=== PATIENT | male | born 1955 | race Caucasian/White ===

== ENCOUNTER 2019-02-27 12:33 | Inpatient (IN) | payer MEDICARE ==
[2019-02-27 13:11] LABS: #Eosinphils 0.3 thou/uL (0.0-0.7); #Lymphocytes 1.2 thou/uL (1.20-3.40); #Monocytes 1.3 thou/uL (0.11-0.59); #Neutrophils 11.1 thou/uL (1.40-6.50); %Basophils 0.2 % (0.0-1.0); %Eosinophils 2.2 % (0.0-10.0); %Lymphocytes 8.5 % (21.0-51.0); %Neutrophils 80.2 % (42.0-75.0); Hemoglobin 12.6 g/dL (14.0-18.0); Mean Corpuscular HGB CONC 32.3 g/dL (32.0-36.0); Mean Corpuscular Volume 96.1 fL (78.0-98.0); Mean Platelet Volume 7.8 fL (7.4-10.4); Platelet Count 261 thou/uL (130-400); Red Blood Cell (RBC) Count 4.05 mill/uL (4.70-6.10); White Blood Cell (WBC) Count 13.9 thou/uL (4.8-10.8)
[2019-02-27 13:32] LABS: ALT (SGPT) 20 U/L (8-55); AST (SGOT) 14 U/L (5-34); Albumin 3.7 g/dL (3.4-4.8); Alkaline Phosphatase 93 U/L (40-150); Anion Gap 11 mmol/L (10-20); BUN (Urea Nitrogen) 18 mg/dL (8.4-25.7); Bilirubin, Total 0.7 mg/dL (0.2-1.2); Calc. Creatinine Clearance 0 mL/min (70-130); Calcium 9.9 mg/dL (7.8-10.44); Carbon Dioxide 31 mmol/L (23-31); Chloride 95 mmol/L (98-107); Estimated GFR-MDRD 72; Globulin 3.5 g/dL (2.4-3.5); Glucose 185 mg/dL (80-115); Potassium 4.6 mmol/L (3.5-5.1); Protein, Total 7.2 g/dL (5.8-8.1); Sodium 132 mmol/L (136-145)
--- NOTE | 2019-02-27 15:39 | ULT ---
LEFT LOWER EXTREMITY VENOUS ULTRASOUND: 02/27/19 COMPARISON: None. HISTORY: Left leg edema. TECHNIQUE: Multiplanar ulloa scale and color Doppler images obtained in a left lower extremity venous ultrasound. Spectral analysis of the Doppler waveforms were performed. FINDINGS: The left common femoral vein, profunda femoral vein, superficial femoral vein, and popliteal vein are normal in appearance without visible thrombus. These vessels demonstrate normal compression, flow an d augmentation. The visualized portions of the posterior tibial vein and greater saphenous vein are p atent. IMPRESSION: No evidence of DVT. POS: TPC
[2019-02-27] MEDS ORDERED: Morphine 4 MG/ML VIAL ONE (16:42)
[2019-02-27] MEDS ORDERED: Piperacillin/Tazobactam 4.5 GM VIAL ONE (17:25)
[2019-02-27] MEDS ORDERED: Sodium Chloride 0.9% 1,000 ML IV SCH (19:13)
[2019-02-27] MEDS ORDERED: Ondansetron PF 4 MG/2 ML Vial IVP PRN (19:13)
[2019-02-27] MEDS ORDERED: Ondansetron ODT 4 MG TAB SL PRN (19:13)
[2019-02-27 22:33] VITALS: BMI 38.4
[2019-02-28] MEDS: Piperacillin/Tazobactam 4.5 GM in Sodium Chloride 0.9% 100 ML IVPB SCH ×4 (00:14→19:10)
[2019-02-28] MEDS: Acetaminophen 325 MG TAB PO PRN ×3 (00:15→22:58)
[2019-02-28] MEDS: Vancomycin HCl 1.75 GM in Sodium Chloride 0.9% 500 ML IVPB SCH ×2 (01:54→13:53)
[2019-02-28] MEDS ORDERED: Vancomycin HCl 1 GM in Premix Bag 1 BAG IVPB SCH (03:00)
--- NOTE | 2019-02-28 04:10 | HP ---
PRIMARY CARE PHYSICIAN: Dr. Christian. CHIEF COMPLAINT: Lower extremity cellulitis and pain. HISTORY OF PRESENT ILLNESS: Mr. Strickland is a 63-year-old man with a past medical history of hypertension, hyperlipidemia, history of ischemic cerebrovascular accident with some left-sided deficits, who had presented to [facility] earlier today due to worsening left lower extremity redness, swelling, and pain. The patient states that the symptoms have been going on for the last 1 to 2 months, but has gradually worsened over the last 1 to 2 weeks. He states due to his previous stroke in 2010, he has some left-sided deficits, which has caused him some trouble with ambulating and getting around his house. He states that he lives at home with his sister. He had denied any fever, chills, any headache, blurred vision, dizziness, any chest pain, palpitations, shortness of breath, abdominal pain, nausea, or vomiting. His initial workup included a lower extremity ultrasound which was negative for DVT. His labs indicated an elevated white count of 13.9. He was started on IV vancomycin and Zosyn per ED staff. Blood cultures were sent and are pending at this time. REVIEW OF SYSTEMS: All other systems reviewed and found to be negative unless mentioned in HPI. PAST MEDICAL HISTORY: Hypertension, hyperlipidemia, and CVA with left-sided deficits. PAST SURGICAL HISTORY: None. PSYCHIATRIC HISTORY: Includes depression. SOCIAL HISTORY: The patient denies any alcohol, tobacco, or illicit drug use. He is a former smoker and quit about 3 years ago. KNOWN ALLERGIES: No known drug allergies. CURRENT HOME MEDICATIONS: 1. Aspirin 81 mg daily. 2. Atorvastatin 40 mg oral daily. 3. Chlorthalidone 25 mg p.o. daily. 4. Lisinopril 10 mg oral daily. 5. Sertraline 50 mg oral daily. 6. Alprazolam 0.5 mg p.o. as needed for anxiety. 7. Pepcid 20 mg oral daily. PHYSICAL EXAMINATION: VITAL SIGNS: BP 149/68, pulse 89, respirations 20, temperature 97.8 degrees Fahrenheit, O2 saturations 100% on room air. GENERAL: The patient is awake, alert, and oriented x3. He is currently lying comfortably in bed, and in no acute distress. HEENT: Atraumatic, normocephalic. Pupils are round and reactive to light. Extraocular muscles intact. Moist mucous membranes noted. Poor oral hygiene noted. NECK: Soft and supple. Trachea midline. CARDIOVASCULAR: Positive S1 and S2. Regular rate and rhythm. No murmur auscultated. RESPIRATORY: Clear to auscultation bilaterally. No wheezes, rales, or rhonchi. ABDOMEN: Soft and nontender. Bowel sounds present. MUSCULOSKELETAL: Strength 5+ on the right and noted diminished strength on the left from his previous CVA, currently at baseline with trace edema noted in lower extremities. NEUROLOGIC: Cranial nerves II through XII 12 grossly intact. Left-sided deficits noted from his previous stroke, currently at baseline. Speech intact and normal. Gait, not assessed. SKIN: Warm, dry, and intact. There is noticeable amount of erythema, warmth, and tenderness noted on his lower left extremity tracking up to mid edward below the knee. PSYCHIATRIC: Good mood and affect. LABORATORY DATA: WBC 13.9, RBC 4.05, hemoglobin 12.6, platelets 261. Sodium 132, potassium 4.6, anion gap 11, BUN 18, creatinine 1.04, estimated GFR 72, glucose 185. Lactic acid 1.6. DIAGNOSTIC IMAGING: Lower extremity venous ultrasound showed no evidence of DVT. ASSESSMENT AND PLAN: 1. Left lower extremity cellulitis. The patient will be treated with IV vancomycin with pharmacy to dose along with IV Zosyn. Blood cultures are sent and pending at this time. He will also be started on topical nystatin cream. 2. History of hypertension. Continue home regimen. 3. Hyperlipidemia. Continue home statin. 4. History of previous cerebrovascular accident. Order PT and OT to work with the patient as he may benefit from home care and home PT and OT. 5. Deep venous thrombosis and gastrointestinal prophylaxis. CODE STATUS: Full code. DISPOSITION: Pending further workup and clinical findings. Job ID: [id number]
[2019-02-28 06:31] LABS: #Eosinphils 0.4 thou/uL (0.0-0.7); #Lymphocytes 1.5 thou/uL (1.20-3.40); #Monocytes 1.2 thou/uL (0.11-0.59); #Neutrophils 9.4 thou/uL (1.40-6.50); %Basophils 0.1 % (0.0-1.0); %Eosinophils 2.9 % (0.0-10.0); %Lymphocytes 11.8 % (21.0-51.0); %Monocytes 9.5 % (0.0-10.0); %Neutrophils 75.7 % (42.0-75.0); Hemoglobin 12.1 g/dL (14.0-18.0); Mean Corpuscular Hemoglobin 31.5 pg (27.0-31.0); Mean Corpuscular Volume 95.4 fL (78.0-98.0); Platelet Count 222 thou/uL (130-400); RBC Distribution Width 13.1 % (11.5-14.5); Red Blood Cell (RBC) Count 3.85 mill/uL (4.70-6.10); White Blood Cell (WBC) Count 12.5 thou/uL (4.8-10.8)
[2019-02-28 06:45] LABS: Anion Gap 12 mmol/L (10-20); BUN (Urea Nitrogen) 17 mg/dL (8.4-25.7); Calc. Creatinine Clearance 133 mL/min (70-130); Calcium 8.9 mg/dL (7.8-10.44); Carbon Dioxide 27 mmol/L (23-31); Chloride 99 mmol/L (98-107); Estimated GFR-MDRD 84; Glucose 120 mg/dL (80-115); Potassium 4.3 mmol/L (3.5-5.1); Sodium 134 mmol/L (136-145)
[2019-02-28] MEDS: Aspirin 81 mg Enteric Coated Tablet PO SCH (08:12)
[2019-02-28] MEDS: Lisinopril 10 MG TAB PO SCH (08:12)
[2019-02-28] MEDS: Chlorthalidone 25 MG TAB PO SCH (08:12)
[2019-02-28] MEDS: Atorvastatin Calcium 40 MG TAB PO SCH (08:13)
[2019-02-28] MEDS: Nystatin Cream 30 GM TUBE TOP SCH ×2 (08:14→21:38)
--- NOTE | 2019-02-28 13:24 | PDOC.PN ---
- Subjective Encounter Start Date: 02/28/19 Encounter Start Time: 13:00 Subjective: pain and swelling is better over left leg -: has not been amb much per family at bedside - Objective MAR Reviewed: Yes Vital Signs & Weight: Vital Signs (12 hours) Temp Pulse Resp BP BP BP Pulse Ox 02/28/19 11:08 98.1 F 80 16 144/75 H 93 L 02/28/19 08:12 162/70 H 02/28/19 08:00 92 L 02/28/19 06:59 97.6 F 83 17 162/70 H 91 L 02/28/19 04:00 98.2 F 82 20 164/75 H 92 L Weight Weight 245 lb 8 oz I&O: 02/27/19 02/28/19 03/01/19 06:59 06:59 06:59 Intake Total 1225 Output Total 1300 Balance -75 Result Diagrams: 02/28/19 06:01 02/28/19 06:01 Phys Exam - Physical Examination HEENT: PERRLA, moist MMs Neck: no JVD, supple Respiratory: no wheezing, no rales Cardiovascular: RRR, no significant murmur Gastrointestinal: soft, non-tender, positive bowel sounds Musculoskeletal: pulses present, edema present left leg in dressing Neurological: non-focal, moves all 4 limbs Psychiatric: A&O x 3 Dx/Plan (1) Cellulitis of left lower extremity Code(s): L03.116 - CELLULITIS OF LEFT LOWER LIMB Status: Acute (2) H/O: CVA (cerebrovascular accident) Code(s): Z86.73 - PRSNL HX OF TIA (TIA), AND CEREB INFRC W/O RESID DEFICITS Status: Chronic Comment: in 2011 with left hemiparesis strength of 3/5 in lower and 0/5 in upper (3) HTN (hypertension) Code(s): I10 - ESSENTIAL (PRIMARY) HYPERTENSION Status: Chronic Qualifiers: Hypertension type: essential hypertension Qualified Code(s): I10 - Essential (primary) hypertension (4) Obesity (BMI 30-39.9) Code(s): E66.9 - OBESITY, UNSPECIFIED Status: Chronic (5) Dyslipidemia Code(s): E78.5 - HYPERLIPIDEMIA, UNSPECIFIED Status: Chronic - Plan is on vanc and zosyn -: rehab/swing bed for disposition -: change status to inpt -: estrella hose to lower extremities, likely has some venous stasis -: continue asp, lipitor, lisinopril, sertraline and chlorthalidone * . Review of Systems - Medications/Allergies Allergies/Adverse Reactions: Allergies Allergy/AdvReac Type Severity Reaction Status Date / Time No Known Allergies Allergy Verified 02/27/19 22:38 Medications: Current Medications Acetaminophen (Tylenol) 650 mg PO Q6H PRN PRN Reason: Mild Pain (1-3) Last Admin: 02/28/19 08:13 Dose: 650 mg Alprazolam (Xanax) 0.5 mg PO DAILYPRN PRN PRN Reason: Anxiety Aspirin (Ecotrin) 81 mg PO DAILY [facility] Last Admin: 02/28/19 08:12 Dose: 81 mg Atorvastatin Calcium (Lipitor) 40 mg PO DAILY [facility] Last Admin: 02/28/19 08:13 Dose: 40 mg Chlorthalidone (Hygroton) 25 mg PO QAM [facility] Last Admin: 02/28/19 08:12 Dose: 25 mg Piperacillin Sod/Tazobactam (Sod 4.5 gm/ Sodium Chloride) 100 mls @ 200 mls/hr IVPB Q6HR [facility] Last Admin: 02/28/19 12:34 Dose: 100 mls Vancomycin HCl 1.75 gm/ Sodium (Chloride) 500 mls @ 250 mls/hr IVPB 0200,1400 [facility] Last Admin: 02/28/19 01:54 Dose: 500 mls Lisinopril (Zestril) 10 mg PO DAILY [facility] Last Admin: 02/28/19 08:12 Dose: 10 mg Miscellaneous Medication (Pharmacy To Dose) 1 each IVPB PRN PRN PRN Reason: Pharmacy to dose Nystatin (Mycostatin Cream) 0 gm TOP BID [facility] Last Admin: 02/28/19 08:14 Dose: Not Given Ondansetron HCl (Zofran Odt) 4 mg SL Q6H PRN PRN Reason: Nausea/Vomiting Sertraline HCl (Zoloft) 50 mg PO DAILY [facility] Last Admin: 02/28/19 08:13 Dose: 50 mg Sodium Chloride (Flush - Normal Saline) 10 ml IVF Q12HR [facility] Last Admin: 02/28/19 08:14 Dose: Not Given Sodium Chloride (Flush - Normal Saline) 10 ml IVF PRN PRN PRN Reason: Saline Flush
[2019-03-01 01:45] LABS: Vancomycin, Trough 26.2 ug/mL
[2019-03-01] MEDS: Vancomycin HCl 1.75 GM in Sodium Chloride 0.9% 500 ML IVPB SCH ×2 (02:09→02:11)
[2019-03-01] MEDS: Piperacillin/Tazobactam 4.5 GM in Sodium Chloride 0.9% 100 ML IVPB SCH ×4 (04:20→22:48)
[2019-03-01 05:52] LABS: #Eosinphils 0.4 thou/uL (0.0-0.7); #Lymphocytes 1.2 thou/uL (1.20-3.40); #Monocytes 0.8 thou/uL (0.11-0.59); #Neutrophils 6.7 thou/uL (1.40-6.50); %Basophils 0.3 % (0.0-1.0); %Eosinophils 4.9 % (0.0-10.0); %Lymphocytes 13.1 % (21.0-51.0); %Monocytes 8.7 % (0.0-10.0); %Neutrophils 73.1 % (42.0-75.0); Mean Corpuscular HGB CONC 32.7 g/dL (32.0-36.0); Mean Corpuscular Hemoglobin 31.5 pg (27.0-31.0); Mean Corpuscular Volume 96.1 fL (78.0-98.0); Mean Platelet Volume 8.1 fL (7.4-10.4); Platelet Count 222 thou/uL (130-400); RBC Distribution Width 12.8 % (11.5-14.5); Red Blood Cell (RBC) Count 3.49 mill/uL (4.70-6.10); White Blood Cell (WBC) Count 9.2 thou/uL (4.8-10.8)
[2019-03-01 06:05] LABS: Anion Gap 11 mmol/L (10-20); BUN (Urea Nitrogen) 13 mg/dL (8.4-25.7); Calc. Creatinine Clearance 144 mL/min (70-130); Calcium 8.3 mg/dL (7.8-10.44); Carbon Dioxide 26 mmol/L (23-31); Chloride 103 mmol/L (98-107); Estimated GFR-MDRD Greater than 90; Glucose 101 mg/dL (80-115); Potassium 4.1 mmol/L (3.5-5.1); Sodium 136 mmol/L (136-145)
[2019-03-01] MEDS: Atorvastatin Calcium 40 MG TAB PO SCH (08:21)
[2019-03-01] MEDS: Aspirin 81 mg Enteric Coated Tablet PO SCH (08:21)
[2019-03-01] MEDS: Lisinopril 10 MG TAB PO SCH (08:21)
[2019-03-01] MEDS: Chlorthalidone 25 MG TAB PO SCH (08:21)
[2019-03-01] MEDS: Nystatin Cream 30 GM TUBE TOP SCH ×2 (08:22→22:49)
[2019-03-01] MEDS: ALPRAZolam 0.5 MG TAB PO PRN (08:25)
--- NOTE | 2019-03-01 11:26 | PDOC.PN ---
- Subjective Encounter Start Date: 03/01/19 Encounter Start Time: 08:20 Subjective: left leg pain is better -: has amb around his bed with PT yesterday - Objective MAR Reviewed: Yes Vital Signs & Weight: Vital Signs (12 hours) Temp Pulse Resp BP BP BP Pulse Ox 03/01/19 08:21 159/69 H 03/01/19 08:00 98.1 F 76 20 159/69 H 93 L 03/01/19 04:00 98.4 F 71 20 146/77 H 92 L 03/01/19 00:00 98.3 F 75 20 156/68 H Weight Admit Weight 245 lb Weight 245 lb 8 oz I&O: 02/28/19 03/01/19 03/02/19 06:59 06:59 06:59 Intake Total 1225 2300 Output Total 1300 1550 Balance -75 750 Result Diagrams: 03/01/19 05:09 03/01/19 05:09 Phys Exam - Physical Examination HEENT: PERRLA, moist MMs Neck: no JVD, supple Respiratory: no wheezing, no rales Cardiovascular: RRR, no significant murmur Gastrointestinal: soft, non-tender, positive bowel sounds Musculoskeletal: pulses present, edema present left leg in dressing Neurological: non-focal chronic left lower paresis and upper plegia Psychiatric: normal affect, A&O x 3 Dx/Plan (1) Cellulitis of left lower extremity Code(s): L03.116 - CELLULITIS OF LEFT LOWER LIMB Status: Acute Comment: has venous stasis (2) H/O: CVA (cerebrovascular accident) Code(s): Z86.73 - PRSNL HX OF TIA (TIA), AND CEREB INFRC W/O RESID DEFICITS Status: Chronic Comment: in 2011 with left hemiparesis strength of 3/5 in lower and 0/5 in upper (3) HTN (hypertension) Code(s): I10 - ESSENTIAL (PRIMARY) HYPERTENSION Status: Chronic Qualifiers: Hypertension type: essential hypertension Qualified Code(s): I10 - Essential (primary) hypertension (4) Obesity (BMI 30-39.9) Code(s): E66.9 - OBESITY, UNSPECIFIED Status: Chronic (5) Dyslipidemia Code(s): E78.5 - HYPERLIPIDEMIA, UNSPECIFIED Status: Chronic (6) Physical deconditioning Code(s): R53.81 - OTHER MALAISE Status: Acute - Plan is on vanc and zosyn -: to ambulate with PT as tolerated, rehab eval pending -: continue asp, lipitor, chlorthalidone, lisinopril and sertraline -: hemostable * . Review of Systems - Medications/Allergies Allergies/Adverse Reactions: Allergies Allergy/AdvReac Type Severity Reaction Status Date / Time No Known Allergies Allergy Verified 02/27/19 22:38 Medications: Current Medications Acetaminophen (Tylenol) 650 mg PO Q6H PRN PRN Reason: Mild Pain (1-3) Last Admin: 02/28/19 22:58 Dose: 650 mg Alprazolam (Xanax) 0.5 mg PO DAILYPRN PRN PRN Reason: Anxiety Last Admin: 03/01/19 08:25 Dose: 0.5 mg Aspirin (Ecotrin) 81 mg PO DAILY [facility] Last Admin: 03/01/19 08:21 Dose: 81 mg Atorvastatin Calcium (Lipitor) 40 mg PO DAILY [facility] Last Admin: 03/01/19 08:21 Dose: 40 mg Chlorthalidone (Hygroton) 25 mg PO QAM [facility] Last Admin: 03/01/19 08:21 Dose: 25 mg Piperacillin Sod/Tazobactam (Sod 4.5 gm/ Sodium Chloride) 100 mls @ 200 mls/hr IVPB 0400,1000,1600,2200 [facility] Last Admin: 03/01/19 10:00 Dose: 100 mls Vancomycin HCl 1 gm/ Device 200 mls @ 200 mls/hr IVPB 0200,1400 [facility] Lisinopril (Zestril) 10 mg PO DAILY [facility] Last Admin: 03/01/19 08:21 Dose: 10 mg Miscellaneous Medication (Pharmacy To Dose) 1 each IVPB PRN PRN PRN Reason: Pharmacy to dose Nystatin (Mycostatin Cream) 0 gm TOP BID [facility] Last Admin: 03/01/19 08:22 Dose: Not Given Ondansetron HCl (Zofran Odt) 4 mg SL Q6H PRN PRN Reason: Nausea/Vomiting Sertraline HCl (Zoloft) 50 mg PO DAILY [facility] Last Admin: 03/01/19 08:21 Dose: 50 mg Sodium Chloride (Flush - Normal Saline) 10 ml IVF Q12HR [facility] Last Admin: 03/01/19 08:22 Dose: 10 ml Sodium Chloride (Flush - Normal Saline) 10 ml IVF PRN PRN PRN Reason: Saline Flush
[2019-03-01] MEDS: Vancomycin HCl 1 GM in Premix Bag 1 BAG IVPB SCH (13:51)
[2019-03-02] MEDS: Vancomycin HCl 1 GM in Premix Bag 1 BAG IVPB SCH ×2 (01:19→14:14)
[2019-03-02] MEDS: Piperacillin/Tazobactam 4.5 GM in Sodium Chloride 0.9% 100 ML IVPB SCH ×4 (05:28→21:49)
[2019-03-02] MEDS: Chlorthalidone 25 MG TAB PO SCH (09:31)
[2019-03-02] MEDS: Atorvastatin Calcium 40 MG TAB PO SCH (09:31)
[2019-03-02] MEDS: Lisinopril 10 MG TAB PO SCH (09:31)
[2019-03-02] MEDS: Aspirin 81 mg Enteric Coated Tablet PO SCH (09:31)
[2019-03-02] MEDS: Nystatin Cream 30 GM TUBE TOP SCH ×2 (09:32→20:42)
--- NOTE | 2019-03-02 13:15 | PDOC.PN ---
- Subjective Encounter Start Date: 03/02/19 Encounter Start Time: 08:15 Subjective: left leg pain is better, is amb in room with PT -: no sob - Objective MAR Reviewed: Yes Vital Signs & Weight: Vital Signs (12 hours) Temp Pulse Resp BP BP Pulse Ox 03/02/19 09:31 183/91 H 03/02/19 07:25 97.9 F 75 20 183/91 H 90 L Weight Admit Weight 245 lb Weight 245 lb 8 oz I&O: 03/01/19 03/02/19 03/03/19 06:59 06:59 06:59 Intake Total 2300 Output Total 1550 Balance 750 Result Diagrams: 03/01/19 05:09 03/01/19 05:09 Phys Exam - Physical Examination HEENT: PERRLA, moist MMs Neck: no JVD, supple Respiratory: no wheezing, no rales Cardiovascular: RRR, no significant murmur Gastrointestinal: soft, non-tender, positive bowel sounds Musculoskeletal: pulses present left leg erythema and edema is receding Neurological: non-focal, moves all 4 limbs chronic left UE plegia and LE paresis Psychiatric: normal affect, A&O x 3 Dx/Plan (1) Cellulitis of left lower extremity Code(s): L03.116 - CELLULITIS OF LEFT LOWER LIMB Status: Acute Comment: has venous stasis (2) H/O: CVA (cerebrovascular accident) Code(s): Z86.73 - PRSNL HX OF TIA (TIA), AND CEREB INFRC W/O RESID DEFICITS Status: Chronic Comment: in 2011 with left hemiparesis strength of 3/5 in lower and 0/5 in upper (3) HTN (hypertension) Code(s): I10 - ESSENTIAL (PRIMARY) HYPERTENSION Status: Chronic Qualifiers: Hypertension type: essential hypertension Qualified Code(s): I10 - Essential (primary) hypertension (4) Obesity (BMI 30-39.9) Code(s): E66.9 - OBESITY, UNSPECIFIED Status: Chronic (5) Dyslipidemia Code(s): E78.5 - HYPERLIPIDEMIA, UNSPECIFIED Status: Chronic (6) Physical deconditioning Code(s): R53.81 - OTHER MALAISE Status: Acute - Plan hemostable -: awaiting rehab eval, may dc if accepted -: currently on vanc and zosyn, will switch to keflex on discharge -: continue to mobilize more as tolerated -: on asp, lipitor, chlorthalidone, sertaraline, lisinopril * . Review of Systems - Medications/Allergies Allergies/Adverse Reactions: Allergies Allergy/AdvReac Type Severity Reaction Status Date / Time No Known Allergies Allergy Verified 02/27/19 22:38 Medications: Current Medications Acetaminophen (Tylenol) 650 mg PO Q6H PRN PRN Reason: Mild Pain (1-3) Last Admin: 02/28/19 22:58 Dose: 650 mg Alprazolam (Xanax) 0.5 mg PO DAILYPRN PRN PRN Reason: Anxiety Last Admin: 03/01/19 08:25 Dose: 0.5 mg Aspirin (Ecotrin) 81 mg PO DAILY [facility] Last Admin: 03/02/19 09:31 Dose: 81 mg Atorvastatin Calcium (Lipitor) 40 mg PO DAILY [facility] Last Admin: 03/02/19 09:31 Dose: 40 mg Chlorthalidone (Hygroton) 25 mg PO QAM [facility] Last Admin: 03/02/19 09:31 Dose: 25 mg Piperacillin Sod/Tazobactam (Sod 4.5 gm/ Sodium Chloride) 100 mls @ 200 mls/hr IVPB 0400,1000,1600,2200 [facility] Last Admin: 03/02/19 09:32 Dose: 100 mls Vancomycin HCl 1 gm/ Device 200 mls @ 200 mls/hr IVPB 0200,1400 [facility] Last Admin: 03/02/19 01:19 Dose: 200 mls Lisinopril (Zestril) 10 mg PO DAILY [facility] Last Admin: 03/02/19 09:31 Dose: 10 mg Miscellaneous Medication (Pharmacy To Dose) 1 each IVPB PRN PRN PRN Reason: Pharmacy to dose Nystatin (Mycostatin Cream) 0 gm TOP BID [facility] Last Admin: 03/02/19 09:32 Dose: 1 gm Ondansetron HCl (Zofran Odt) 4 mg SL Q6H PRN PRN Reason: Nausea/Vomiting Sertraline HCl (Zoloft) 50 mg PO DAILY [facility] Last Admin: 03/02/19 09:32 Dose: 50 mg Sodium Chloride (Flush - Normal Saline) 10 ml IVF Q12HR [facility] Last Admin: 03/02/19 09:32 Dose: Not Given Sodium Chloride (Flush - Normal Saline) 10 ml IVF PRN PRN PRN Reason: Saline Flush
[2019-03-02] MEDS: ALPRAZolam 0.5 MG TAB PO PRN (20:47)
[2019-03-03 01:26] LABS: Vancomycin, Random 9.2 ug/mL (See Comment)
[2019-03-03] MEDS ORDERED: Vancomycin HCl 1.5 GM in Sodium Chloride 0.9% 250 ML 300 ML IVPB SCH (02:00)
[2019-03-03] MEDS: Piperacillin/Tazobactam 4.5 GM in Sodium Chloride 0.9% 100 ML IVPB SCH (05:20)
[2019-03-03] MEDS: Lisinopril 10 MG TAB PO SCH (08:47)
[2019-03-03] MEDS: Aspirin 81 mg Enteric Coated Tablet PO SCH (08:47)
[2019-03-03] MEDS: Atorvastatin Calcium 40 MG TAB PO SCH (08:47)
[2019-03-03] MEDS: Nystatin Cream 30 GM TUBE TOP SCH ×2 (08:48→20:31)
[2019-03-03] MEDS: Cephalexin 250 MG CAP PO SCH ×4 (10:55→20:34)
[2019-03-03] MEDS: Chlorthalidone 25 MG TAB PO SCH (10:57)
--- NOTE | 2019-03-03 12:15 | PDOC.PN ---
- Subjective Encounter Start Date: 03/03/19 Encounter Start Time: 11:00 Subjective: feels better, no pain in his legs -: is amb in room with PT - Objective MAR Reviewed: Yes Vital Signs & Weight: Vital Signs (12 hours) Temp Pulse Resp BP Pulse Ox 03/03/19 07:21 97.7 F 68 18 159/80 H 92 L Weight Admit Weight 245 lb Weight 245 lb 8 oz I&O: 03/02/19 03/03/19 03/04/19 06:59 06:59 06:59 Intake Total 740 Output Total 150 Balance 590 Result Diagrams: 03/01/19 05:09 03/01/19 05:09 Phys Exam - Physical Examination HEENT: PERRLA, moist MMs Neck: no JVD, supple Respiratory: no wheezing, no rales Cardiovascular: RRR, no significant murmur Gastrointestinal: soft, non-tender, positive bowel sounds Musculoskeletal: pulses present, edema present Neurological: non-focal chronic left hemiparesis, has plegia in left UE Psychiatric: normal affect, A&O x 3 Dx/Plan (1) Cellulitis of left lower extremity Code(s): L03.116 - CELLULITIS OF LEFT LOWER LIMB Status: Acute Comment: has venous stasis (2) H/O: CVA (cerebrovascular accident) Code(s): Z86.73 - PRSNL HX OF TIA (TIA), AND CEREB INFRC W/O RESID DEFICITS Status: Chronic Comment: in 2010 with left hemiparesis strength of 3/5 in lower and 0/5 in upper (3) HTN (hypertension) Code(s): I10 - ESSENTIAL (PRIMARY) HYPERTENSION Status: Chronic Qualifiers: Hypertension type: essential hypertension Qualified Code(s): I10 - Essential (primary) hypertension (4) Obesity (BMI 30-39.9) Code(s): E66.9 - OBESITY, UNSPECIFIED Status: Chronic (5) Dyslipidemia Code(s): E78.5 - HYPERLIPIDEMIA, UNSPECIFIED Status: Chronic (6) Physical deconditioning Code(s): R53.81 - OTHER MALAISE Status: Acute - Plan hemostable -: switch antibiotics to keflex -: medically stable for dc if placement is ready -: awaiting rehab eval -: continue asp, lipitor, lisinopril, chlorthalidone, sertraline * . Review of Systems - Medications/Allergies Allergies/Adverse Reactions: Allergies Allergy/AdvReac Type Severity Reaction Status Date / Time No Known Allergies Allergy Verified 02/27/19 22:38 Medications: Current Medications Acetaminophen (Tylenol) 650 mg PO Q6H PRN PRN Reason: Mild Pain (1-3) Last Admin: 02/28/19 22:58 Dose: 650 mg Alprazolam (Xanax) 0.5 mg PO DAILYPRN PRN PRN Reason: Anxiety Last Admin: 03/02/19 20:47 Dose: 0.5 mg Aspirin (Ecotrin) 81 mg PO DAILY [facility] Last Admin: 03/03/19 08:47 Dose: 81 mg Atorvastatin Calcium (Lipitor) 40 mg PO DAILY [facility] Last Admin: 03/03/19 08:47 Dose: 40 mg Cephalexin (Keflex) 500 mg PO QID [facility] Last Admin: 03/03/19 10:57 Dose: 500 mg Chlorthalidone (Hygroton) 25 mg PO QAM [facility] Last Admin: 03/03/19 10:57 Dose: 25 mg Lisinopril (Zestril) 10 mg PO DAILY [facility] Last Admin: 03/03/19 08:47 Dose: 10 mg Miscellaneous Medication (Pharmacy To Dose) 1 each IVPB PRN PRN PRN Reason: Pharmacy to dose Nystatin (Mycostatin Cream) 0 gm TOP BID [facility] Last Admin: 03/03/19 08:48 Dose: 1 gm Ondansetron HCl (Zofran Odt) 4 mg SL Q6H PRN PRN Reason: Nausea/Vomiting Sertraline HCl (Zoloft) 50 mg PO DAILY [facility] Last Admin: 03/03/19 08:47 Dose: 50 mg Sodium Chloride (Flush - Normal Saline) 10 ml IVF Q12HR [facility] Last Admin: 03/03/19 08:51 Dose: Not Given Sodium Chloride (Flush - Normal Saline) 10 ml IVF PRN PRN PRN Reason: Saline Flush
[2019-03-03] MEDS: ALPRAZolam 0.5 MG TAB PO PRN (20:34)
[2019-03-04] MEDS: Chlorthalidone 25 MG TAB PO SCH (10:10)
[2019-03-04] MEDS: Atorvastatin Calcium 40 MG TAB PO SCH (10:11)
[2019-03-04] MEDS: Lisinopril 10 MG TAB PO SCH (10:11)
[2019-03-04] MEDS: Aspirin 81 mg Enteric Coated Tablet PO SCH (10:11)
[2019-03-04] MEDS: Nystatin Cream 30 GM TUBE TOP SCH ×2 (10:12→21:15)
[2019-03-04] MEDS: Cephalexin 250 MG CAP PO SCH ×4 (10:23→21:15)
--- NOTE | 2019-03-04 12:36 | PDOC.PN ---
- Subjective Encounter Start Date: 03/04/19 Encounter Start Time: 08:00 Subjective: feels good, no sob - Objective MAR Reviewed: Yes Vital Signs & Weight: Vital Signs (12 hours) Temp Pulse Resp BP BP Pulse Ox 03/04/19 10:11 181/75 H 03/04/19 07:17 97.6 F 70 16 181/75 H 94 L Weight Admit Weight 245 lb Weight 245 lb 8 oz I&O: 03/03/19 03/04/19 03/05/19 06:59 06:59 06:59 Intake Total 740 1120 Output Total 150 300 Balance 590 820 Result Diagrams: 03/01/19 05:09 03/01/19 05:09 Phys Exam - Physical Examination HEENT: PERRLA, moist MMs Neck: no JVD, supple Respiratory: no wheezing, no rales Cardiovascular: RRR, no significant murmur Gastrointestinal: soft, non-tender, positive bowel sounds Musculoskeletal: pulses present, edema present Neurological: non-focal, moves all 4 limbs Psychiatric: normal affect, A&O x 3 Dx/Plan (1) Cellulitis of left lower extremity Code(s): L03.116 - CELLULITIS OF LEFT LOWER LIMB Status: Acute Comment: has venous stasis (2) H/O: CVA (cerebrovascular accident) Code(s): Z86.73 - PRSNL HX OF TIA (TIA), AND CEREB INFRC W/O RESID DEFICITS Status: Chronic Comment: in 2011 with left hemiparesis strength of 3/5 in lower and 0/5 in upper (3) HTN (hypertension) Code(s): I10 - ESSENTIAL (PRIMARY) HYPERTENSION Status: Chronic Qualifiers: Hypertension type: essential hypertension Qualified Code(s): I10 - Essential (primary) hypertension (4) Obesity (BMI 30-39.9) Code(s): E66.9 - OBESITY, UNSPECIFIED Status: Chronic (5) Dyslipidemia Code(s): E78.5 - HYPERLIPIDEMIA, UNSPECIFIED Status: Chronic (6) Physical deconditioning Code(s): R53.81 - OTHER MALAISE Status: Acute - Plan hemostable -: awaiting placement, is medically stable for dc -: continue keflex, asp, lipitor, lisinopril, sertraline, chlorthalidone -: to ambulate with PT as tolerated * . Review of Systems - Medications/Allergies Allergies/Adverse Reactions: Allergies Allergy/AdvReac Type Severity Reaction Status Date / Time No Known Allergies Allergy Verified 02/27/19 22:38 Medications: Current Medications Acetaminophen (Tylenol) 650 mg PO Q6H PRN PRN Reason: Mild Pain (1-3) Last Admin: 02/28/19 22:58 Dose: 650 mg Alprazolam (Xanax) 0.5 mg PO DAILYPRN PRN PRN Reason: Anxiety Last Admin: 03/03/19 20:34 Dose: 0.5 mg Aspirin (Ecotrin) 81 mg PO DAILY [facility] Last Admin: 03/04/19 10:11 Dose: 81 mg Atorvastatin Calcium (Lipitor) 40 mg PO DAILY [facility] Last Admin: 03/04/19 10:11 Dose: 40 mg Cephalexin (Keflex) 500 mg PO QID [facility] Last Admin: 03/04/19 12:35 Dose: 500 mg Chlorthalidone (Hygroton) 25 mg PO QAM [facility] Last Admin: 03/04/19 10:10 Dose: 25 mg Lisinopril (Zestril) 10 mg PO DAILY [facility] Last Admin: 03/04/19 10:11 Dose: 10 mg Nystatin (Mycostatin Cream) 0 gm TOP BID [facility] Last Admin: 03/04/19 10:12 Dose: 30 gm Ondansetron HCl (Zofran Odt) 4 mg SL Q6H PRN PRN Reason: Nausea/Vomiting Sertraline HCl (Zoloft) 50 mg PO DAILY [facility] Last Admin: 03/04/19 10:12 Dose: 50 mg Sodium Chloride (Flush - Normal Saline) 10 ml IVF Q12HR [facility] Last Admin: 03/04/19 10:13 Dose: 10 ml Sodium Chloride (Flush - Normal Saline) 10 ml IVF PRN PRN PRN Reason: Saline Flush
[2019-03-05] MEDS: Cephalexin 250 MG CAP PO SCH ×4 (09:35→20:14)
[2019-03-05] MEDS: Chlorthalidone 25 MG TAB PO SCH (09:36)
[2019-03-05] MEDS: Aspirin 81 mg Enteric Coated Tablet PO SCH (09:36)
[2019-03-05] MEDS: Lisinopril 10 MG TAB PO SCH (09:37)
[2019-03-05] MEDS: Atorvastatin Calcium 40 MG TAB PO SCH (09:39)
[2019-03-05] MEDS: Nystatin Cream 30 GM TUBE TOP SCH ×2 (09:43→20:14)
--- NOTE | 2019-03-05 12:58 | PDOC.PN ---
- Subjective Encounter Start Date: 03/05/19 Encounter Start Time: 09:30 Subjective: awake, no sob -: has amb around 30ft with partial walker with PT -: no pain in his leg - Objective MAR Reviewed: Yes Vital Signs & Weight: Vital Signs (12 hours) Temp Pulse Resp BP BP Pulse Ox 03/05/19 09:37 181/75 H 03/05/19 07:17 98.4 F 76 18 168/82 H 92 L Weight Admit Weight 245 lb Weight 245 lb 8 oz I&O: 03/04/19 03/05/19 03/06/19 06:59 06:59 06:59 Intake Total 1120 350 Output Total 300 100 Balance 820 250 Result Diagrams: 03/01/19 05:09 03/01/19 05:09 Phys Exam - Physical Examination HEENT: PERRLA, moist MMs Neck: no JVD, supple Respiratory: no wheezing, no rales Cardiovascular: RRR, no significant murmur Gastrointestinal: soft, no distention, positive bowel sounds Musculoskeletal: pulses present, edema present Neurological: non-focal, moves all 4 limbs Psychiatric: normal affect, A&O x 3 Dx/Plan (1) Cellulitis of left lower extremity Code(s): L03.116 - CELLULITIS OF LEFT LOWER LIMB Status: Acute Comment: has venous stasis (2) H/O: CVA (cerebrovascular accident) Code(s): Z86.73 - PRSNL HX OF TIA (TIA), AND CEREB INFRC W/O RESID DEFICITS Status: Chronic Comment: in 2011 with left hemiparesis strength of 3/5 in lower and 0/5 in upper (3) HTN (hypertension) Code(s): I10 - ESSENTIAL (PRIMARY) HYPERTENSION Status: Chronic Qualifiers: Hypertension type: essential hypertension Qualified Code(s): I10 - Essential (primary) hypertension (4) Obesity (BMI 30-39.9) Code(s): E66.9 - OBESITY, UNSPECIFIED Status: Chronic (5) Dyslipidemia Code(s): E78.5 - HYPERLIPIDEMIA, UNSPECIFIED Status: Chronic (6) Physical deconditioning Code(s): R53.81 - OTHER MALAISE Status: Acute - Plan hemostable -: awaiting placement, is medically stable for dc -: continue keflex, asp, lipitor, lisinopril, chlorthalidone, sertraline -: PT to mobilize as tolerated * . Review of Systems - Medications/Allergies Allergies/Adverse Reactions: Allergies Allergy/AdvReac Type Severity Reaction Status Date / Time No Known Allergies Allergy Verified 02/27/19 22:38 Medications: Current Medications Acetaminophen (Tylenol) 650 mg PO Q6H PRN PRN Reason: Mild Pain (1-3) Last Admin: 02/28/19 22:58 Dose: 650 mg Alprazolam (Xanax) 0.5 mg PO DAILYPRN PRN PRN Reason: Anxiety Last Admin: 03/03/19 20:34 Dose: 0.5 mg Aspirin (Ecotrin) 81 mg PO DAILY [facility] Last Admin: 03/05/19 09:36 Dose: 81 mg Atorvastatin Calcium (Lipitor) 40 mg PO DAILY [facility] Last Admin: 03/05/19 09:39 Dose: 40 mg Cephalexin (Keflex) 500 mg PO QID [facility] Last Admin: 03/05/19 12:41 Dose: 500 mg Chlorthalidone (Hygroton) 25 mg PO QAM [facility] Last Admin: 03/05/19 09:36 Dose: 25 mg Lisinopril (Zestril) 10 mg PO DAILY [facility] Last Admin: 03/05/19 09:37 Dose: 10 mg Nystatin (Mycostatin Cream) 0 gm TOP BID [facility] Last Admin: 03/05/19 09:43 Dose: 1 gm Ondansetron HCl (Zofran Odt) 4 mg SL Q6H PRN PRN Reason: Nausea/Vomiting Sertraline HCl (Zoloft) 50 mg PO DAILY [facility] Last Admin: 03/05/19 09:36 Dose: 50 mg Sodium Chloride (Flush - Normal Saline) 10 ml IVF Q12HR [facility] Last Admin: 03/05/19 09:43 Dose: Not Given Sodium Chloride (Flush - Normal Saline) 10 ml IVF PRN PRN PRN Reason: Saline Flush
[2019-03-05] MEDS: ALPRAZolam 0.5 MG TAB PO PRN (20:16)
[2019-03-06] MEDS: Cephalexin 250 MG CAP PO SCH ×4 (08:57→20:54)
[2019-03-06] MEDS: Atorvastatin Calcium 40 MG TAB PO SCH (08:57)
[2019-03-06] MEDS: Chlorthalidone 25 MG TAB PO SCH (08:58)
[2019-03-06] MEDS: Aspirin 81 mg Enteric Coated Tablet PO SCH (08:59)
[2019-03-06] MEDS: Nystatin Cream 30 GM TUBE TOP SCH ×2 (10:09→20:55)
[2019-03-06] MEDS: Lisinopril 10 MG TAB PO SCH (10:09)
--- NOTE | 2019-03-06 13:41 | PDOC.PN ---
- Subjective Encounter Start Date: 03/06/19 Encounter Start Time: 13:39 Mr. Strickland was seen today in follow-up of lower extremity cellulitis. He does not have any complaints. He feels the swelling and redness has improved.He also feels very weak. - Objective MAR Reviewed: Yes Vital Signs & Weight: Vital Signs (12 hours) Temp Pulse Resp BP Pulse Ox 03/06/19 08:00 98.5 F 83 18 155/85 H 94 L Weight Admit Weight 245 lb Weight 245 lb 8 oz I&O: 03/05/19 03/06/19 03/07/19 06:59 06:59 06:59 Intake Total 350 Output Total 100 Balance 250 Result Diagrams: 03/01/19 05:09 03/01/19 05:09 Phys Exam - Physical Examination HEENT: PERRLA Respiratory: no wheezing, no rales, no rhonchi, clear to auscultation bilateral Cardiovascular: RRR, no significant murmur, no rub Gastrointestinal: soft, non-tender, no distention, positive bowel sounds Musculoskeletal: pulses present, edema present + edema, and erythema in the left lower extremity + mild warmth Neurological: non-focal, normal sensation Dx/Plan (1) Cellulitis of left lower extremity Code(s): L03.116 - CELLULITIS OF LEFT LOWER LIMB Status: Acute Comment: has venous stasis (2) HTN (hypertension) Code(s): I10 - ESSENTIAL (PRIMARY) HYPERTENSION Status: Chronic Qualifiers: Hypertension type: essential hypertension Qualified Code(s): I10 - Essential (primary) hypertension (3) Obesity (BMI 30-39.9) Code(s): E66.9 - OBESITY, UNSPECIFIED Status: Chronic (4) Physical deconditioning Code(s): R53.81 - OTHER MALAISE Status: Acute - Plan * Cellulitis of the left lower extremity- continue Keflex * Deconditioning- continue PT/OT * HTN- blood pressure is borderline- will continue to monitor
[2019-03-06] MEDS: ALPRAZolam 0.5 MG TAB PO PRN (22:02)
[2019-03-07] MEDS: Cephalexin 250 MG CAP PO SCH ×4 (08:50→20:29)
[2019-03-07] MEDS: Lisinopril 10 MG TAB PO SCH (08:50)
[2019-03-07] MEDS: Chlorthalidone 25 MG TAB PO SCH (08:50)
[2019-03-07] MEDS: Aspirin 81 mg Enteric Coated Tablet PO SCH (08:51)
[2019-03-07] MEDS: Atorvastatin Calcium 40 MG TAB PO SCH (08:51)
[2019-03-07] MEDS: Nystatin Cream 30 GM TUBE TOP SCH ×2 (08:51→20:30)
--- NOTE | 2019-03-07 12:53 | PDOC.PN ---
- Subjective Encounter Start Date: 03/07/19 Encounter Start Time: 12:51 Mr. Strickland was seen today in follow-up of cellulitis of the left leg. He does not have any complaints today. He denies pain or swelling is left leg. - Objective MAR Reviewed: Yes Vital Signs & Weight: Vital Signs (12 hours) Temp Pulse Resp BP BP Pulse Ox 03/07/19 08:50 157/74 H 03/07/19 08:00 98.2 F 73 16 174/84 H 92 L Weight Admit Weight 245 lb Weight 245 lb 8 oz I&O: 03/06/19 03/07/19 03/08/19 06:59 06:59 06:59 Intake Total 1500 Balance 1500 Result Diagrams: 03/01/19 05:09 03/01/19 05:09 Phys Exam - Physical Examination HEENT: PERRLA Respiratory: no wheezing, no rales, no rhonchi, clear to auscultation bilateral Cardiovascular: RRR, no significant murmur, no rub Gastrointestinal: soft, non-tender, no distention, positive bowel sounds Musculoskeletal: pulses present, edema present + edema and erythema in the mid calf of the left leg, + flakey skin and chronic venous stasis changes Neurological: non-focal, normal sensation Dx/Plan (1) Cellulitis of left lower extremity Code(s): L03.116 - CELLULITIS OF LEFT LOWER LIMB Status: Acute Comment: has venous stasis (2) HTN (hypertension) Code(s): I10 - ESSENTIAL (PRIMARY) HYPERTENSION Status: Chronic Qualifiers: Hypertension type: essential hypertension Qualified Code(s): I10 - Essential (primary) hypertension (3) Obesity (BMI 30-39.9) Code(s): E66.9 - OBESITY, UNSPECIFIED Status: Chronic (4) Physical deconditioning Code(s): R53.81 - OTHER MALAISE Status: Acute - Plan * Cellulitis of the left leg- he has been transitioned to Keflex * Continue local wound care * HTN- his blood pressure is consistently elevated- will increase the dose of Lisinopril * Continue PT/OT * Await placement .
[2019-03-07] MEDS: ALPRAZolam 0.5 MG TAB PO PRN (20:29)
[2019-03-08] MEDS: Aspirin 81 mg Enteric Coated Tablet PO SCH (08:51)
[2019-03-08] MEDS: Atorvastatin Calcium 40 MG TAB PO SCH (08:51)
[2019-03-08] MEDS: Lisinopril 20 MG TAB PO SCH (08:52)
[2019-03-08] MEDS: Chlorthalidone 25 MG TAB PO SCH (08:53)
[2019-03-08] MEDS: Nystatin Cream 30 GM TUBE TOP SCH ×2 (08:53→20:08)
[2019-03-08] MEDS: Cephalexin 250 MG CAP PO SCH ×4 (10:46→20:09)
--- NOTE | 2019-03-08 14:58 | PDOC.PN ---
- Subjective Encounter Start Date: 03/08/19 Encounter Start Time: 14:55 Mr. Strickland was seen today in follow-up of cellulitis of the left leg. He does not have any complaints. He says his leg feels " great". He still however is weak, and has trouble maneuvering in bed. - Objective MAR Reviewed: Yes Vital Signs & Weight: Vital Signs (12 hours) Temp Pulse Resp BP BP Pulse Ox 03/08/19 08:52 143/69 H 03/08/19 08:00 98.2 F 69 14 143/69 H 91 L Weight Admit Weight 245 lb Weight 245 lb 8 oz I&O: 03/07/19 03/08/19 03/09/19 06:59 06:59 06:59 Intake Total 1500 1440 Output Total 200 Balance 1500 1440 -200 Result Diagrams: 03/01/19 05:09 03/01/19 05:09 Phys Exam - Physical Examination HEENT: PERRLA Respiratory: no wheezing, no rales, no rhonchi, clear to auscultation bilateral Cardiovascular: RRR, no significant murmur, no rub Gastrointestinal: soft, non-tender, no distention, positive bowel sounds Musculoskeletal: pulses present, edema present + erythema of the left leg, as well as some edema Neurological: non-focal, normal sensation Dx/Plan (1) Cellulitis of left lower extremity Code(s): L03.116 - CELLULITIS OF LEFT LOWER LIMB Status: Acute Comment: has venous stasis (2) HTN (hypertension) Code(s): I10 - ESSENTIAL (PRIMARY) HYPERTENSION Status: Chronic Qualifiers: Hypertension type: essential hypertension Qualified Code(s): I10 - Essential (primary) hypertension (3) Obesity (BMI 30-39.9) Code(s): E66.9 - OBESITY, UNSPECIFIED Status: Chronic (4) Physical deconditioning Code(s): R53.81 - OTHER MALAISE Status: Acute - Plan * Cellulitis of the left leg- continue Keflex * HTN- blood pressure is stable * Previous CVA- patient has left sided weakness which limits his mobility * Deconditioning- continue PT/OT.
[2019-03-08] MEDS: ALPRAZolam 0.5 MG TAB PO PRN (20:10)
[2019-03-09] MEDS: Nystatin Cream 30 GM TUBE TOP SCH (08:00)
[2019-03-09] MEDS: Cephalexin 250 MG CAP PO SCH ×2 (08:01→13:17)
[2019-03-09] MEDS: Atorvastatin Calcium 40 MG TAB PO SCH (08:01)
[2019-03-09] MEDS: Chlorthalidone 25 MG TAB PO SCH (08:01)
[2019-03-09] MEDS: Aspirin 81 mg Enteric Coated Tablet PO SCH (08:01)
[2019-03-09] MEDS: Lisinopril 20 MG TAB PO SCH (08:01)
--- NOTE | 2019-03-09 12:40 | PDOC.PN ---
- Subjective Encounter Start Date: 03/09/19 Encounter Start Time: 12:39 Mr. Strickland was seen today in follow-up of Cellulits of the left lower extremity. He does not have any new complaints. - Objective MAR Reviewed: Yes Vital Signs & Weight: Vital Signs (12 hours) Temp Pulse Resp BP BP Pulse Ox 03/09/19 08:01 158/75 H 03/09/19 08:00 93 L 03/09/19 07:11 97.6 F 73 18 158/75 H 93 L Weight Admit Weight 245 lb Weight 245 lb 8 oz I&O: 03/08/19 03/09/19 03/10/19 06:59 06:59 06:59 Intake Total 1440 1280 200 Output Total 400 Balance 1440 880 200 Result Diagrams: 03/01/19 05:09 03/01/19 05:09 Phys Exam - Physical Examination Respiratory: no wheezing, no rales, no rhonchi, clear to auscultation bilateral Cardiovascular: RRR, no significant murmur, no rub Dx/Plan (1) Cellulitis of left lower extremity Code(s): L03.116 - CELLULITIS OF LEFT LOWER LIMB Status: Acute Comment: has venous stasis (2) HTN (hypertension) Code(s): I10 - ESSENTIAL (PRIMARY) HYPERTENSION Status: Chronic Qualifiers: Hypertension type: essential hypertension Qualified Code(s): I10 - Essential (primary) hypertension (3) Obesity (BMI 30-39.9) Code(s): E66.9 - OBESITY, UNSPECIFIED Status: Chronic (4) Physical deconditioning Code(s): R53.81 - OTHER MALAISE Status: Acute - Plan * Cellulitis of the left leg- clinically improved * He is stable for discharge to the Rehab on oral antibiotics.
[2019-03-09 15:43] VITALS: BP 106/54; TEMP 98.1
== END 2019-03-09 15:50 | DRG 603 ==
LOC: ERS 12:33 → T4-A 16:30 → OBSVTOIN 02-28 12:29
PROVIDERS: ADMIT Family Medicine; ATTEND Family Medicine
DX: L03.116 Cellulitis of left lower limb (principal); I69.354 Hemiplegia and hemiparesis following cerebral infarction affecting left non-dominant side; E78.5 Hyperlipidemia, unspecified; I10 Essential (primary) hypertension; E66.9 Obesity, unspecified; F32.9 Major depressive disorder, single episode, unspecified; R53.81 Other malaise; Z87.891 Personal history of nicotine dependence; Z68.38 Body mass index [BMI] 38.0-38.9, adult; Z79.899 Other long term (current) drug therapy; Z79.2 Long term (current) use of antibiotics
CPT/HCPCS: 36415; 80048; 80053; 80202; 83605; 85025; 87040; 87324; 87449; 96365; 96366; 96367; 96375; J2270; J2543; J3370; J3490; J7050

== ENCOUNTER 2019-04-25 15:29 | Inpatient (IN) | payer MEDICARE ==
[2019-04-25 16:11] LABS: #Eosinphils 0.4 thou/uL (0.0-0.7); #Lymphocytes 1.5 thou/uL (1.20-3.40); #Monocytes 1.2 thou/uL (0.11-0.59); #Neutrophils 10.9 thou/uL (1.40-6.50); %Basophils 0.3 % (0.0-1.0); %Eosinophils 2.9 % (0.0-10.0); %Lymphocytes 10.9 % (21.0-51.0); %Monocytes 8.2 % (0.0-10.0); %Neutrophils 77.7 % (42.0-75.0); Hemoglobin 11.8 g/dL (14.0-18.0); Mean Corpuscular HGB CONC 33.1 g/dL (32.0-36.0); Mean Corpuscular Hemoglobin 32.2 pg (27.0-31.0); Mean Corpuscular Volume 97.3 fL (78.0-98.0); Platelet Count 235 thou/uL (130-400); RBC Distribution Width 14.2 % (11.5-14.5); Red Blood Cell (RBC) Count 3.67 mill/uL (4.70-6.10); White Blood Cell (WBC) Count 14.1 thou/uL (4.8-10.8)
[2019-04-25 16:33] LABS: ALT (SGPT) 21 U/L (8-55); AST (SGOT) 13 U/L (5-34); Albumin 3.9 g/dL (3.4-4.8); Alkaline Phosphatase 82 U/L (40-150); Anion Gap 14 mmol/L (10-20); BUN (Urea Nitrogen) 19 mg/dL (8.4-25.7); Bilirubin, Total 0.5 mg/dL (0.2-1.2); Calc. Creatinine Clearance 0 mL/min (70-130); Calcium 9.6 mg/dL (7.8-10.44); Carbon Dioxide 24 mmol/L (23-31); Chloride 99 mmol/L (98-107); Estimated GFR-MDRD 69; Globulin 2.9 g/dL (2.4-3.5); Glucose 142 mg/dL (80-115); Potassium 4.1 mmol/L (3.5-5.1); Protein, Total 6.8 g/dL (5.8-8.1); Sodium 133 mmol/L (136-145)
--- NOTE | 2019-04-25 16:50 | ULT ---
EXAM: Left lower extremity venous ultrasound HISTORY: Left lower extremity pain and edema COMPARISON: None TECHNIQUE: Multiplanar grayscale and color Doppler images were obtained in a left lower extremity veena ous ultrasound. Spectral analysis of the Doppler waveforms were performed. FINDINGS: The common femoral vein, profunda femoral vein, superficial femoral vein, and popliteal vei n are normal in appearance without visible thrombus. These vessels demonstrate normal compression, flow, and augmentation. The posterior tibial vein and greater saphenous vein are patent without evidence of thrombus. A promi nent lymph node measuring 4.4cm in size is seen in the left inguinal region. IMPRESSION: No evidence of DVT.
[2019-04-25] MEDS ORDERED: HYDROcodone/Acetaminophen 7.5/325 mg Tablet PO PRN (18:18)
[2019-04-25] MEDS ORDERED: Ondansetron PF 4 MG/2 ML Vial IVP PRN (18:18)
[2019-04-25] MEDS ORDERED: HYDROcodone/Acetaminophen 5/325 mg Tablet PO PRN (18:18)
[2019-04-25] MEDS ORDERED: Ondansetron ODT 4 MG TAB PO PRN (18:18)
[2019-04-25] MEDS ORDERED: Acetaminophen 325 MG TAB PO PRN (18:18)
[2019-04-25] MEDS ORDERED: Docusate 100 MG CAP PO PRN (18:21)
[2019-04-25] MEDS ORDERED: hydrALAZINE 20 MG/ML VIAL SLOW IVP PRN (18:21)
[2019-04-25] MEDS ORDERED: Sodium Chloride 0.9% 1,000 ML IV SCH ×2 (18:25→18:30)
[2019-04-25] MEDS ORDERED: ALPRAZolam 0.5 MG TAB PO PRN (18:30)
--- NOTE | 2019-04-25 18:55 | PDOC.HHP ---
Hospitalist HPI - History of Present Illness Lower extremity redness and swelling History of Present Illness: 63 year old gentleman with PMHx of CVA, LE edema who has had frequent cellulitis , HTN, Depression, and panic attacks present worsening bilateral LE swelling, redness, and pain. Patient recently was placed on Doxycycline for lower extremity cellulitis and has not been responding to treatment. Patient states this happens to him when he lays down too much and doesnt get up out of bed, which he has been doing. Patient does take Chlorthaladone chronically, though he does not restrict his fluid intake. Denies heart failure, DM, WI. Hospitalist ROS - Review of Systems All other systems reviewed; all pertinent +/- noted in HPI/Subj Hospitalist History - Past Medical History Source: patient Cardiac: reports: HTN, Hyperlipidemia. denies: CAD, CHF, WI, Syncope Pulmonary: reports: CVA/TIA/stroke, high cholesterol, hypertension. denies: congestive heart failure, COPD [employer]: reports: CVA. denies: Seizure Gastrointestinal: denies: GI bleed Heme/Onc: denies: Cancer Hepatobiliary: denies: Hep A/B/C Psych: reports: Anxiety, Depression. denies: Psychosis, Schizophrenia Rheumatologic: denies: Rheumatoid arthritis Infectious Disease: denies: HIV Renal/: denies: Chronic renal failure Endocrine: denies: Diabetes - Past Surgical History Past Surgical History: denies: CABG - Family History Family History: reports: hyperlipidemia, hypertension. denies: diabetes mellitus - Social History Smoking Status: Former smoker Tobacco Type: cigarettes Alcohol: reports: None Drugs: reports: none Living Situation: With Family Activity level: uses cane/walker - Exam General Appearance: NAD ENT: no oropharyngeal lesions, moist mucosa Neck: supple, symmetric, no lymphadenopathy Heart: no murmur, no gallops, no rubs Heart - other findings: S1 and S2 present Respiratory: CTAB, no wheezes, no rales, no ronchi Gastrointestinal: soft, non-tender, non-distended, no palpable masses, no guarding, no rigidity Extremities: no edema Skin: no lesions, no rashes Neurological: CN's grossly intact, normal sensation to touch, no new deficit Musculoskeletal: generalized weakness Psychiatric: normal affect, A&O x 3 Hospitalist Results - Labs Result Diagrams: 04/25/19 16:01 04/25/19 16:01 Lab results: WBC 14.1 thou/uL (4.8-10.8) H 04/25/19 16:01 Hgb 11.8 g/dL (14.0-18.0) L 04/25/19 16:01 Hct 35.7 % (42.0-52.0) L 04/25/19 16:01 MCV 97.3 fL (78.0-98.0) 04/25/19 16:01 Plt Count 235 thou/uL (130-400) 04/25/19 16:01 Neutrophils % 77.7 % (42.0-75.0) H 04/25/19 16:01 Sodium 133 mmol/L (136-145) L 04/25/19 16:01 Potassium 4.1 mmol/L (3.5-5.1) 04/25/19 16:01 Chloride 99 mmol/L (98-107) 04/25/19 16:01 Carbon Dioxide 24 mmol/L (23-31) 04/25/19 16:01 BUN 19 mg/dL (8.4-25.7) 04/25/19 16:01 Creatinine 1.08 mg/dL (0.7-1.3) 04/25/19 16:01 Glucose 142 mg/dL (80-115) H 04/25/19 16:01 Calcium 9.6 mg/dL (7.8-10.44) 04/25/19 16:01 Total Bilirubin 0.5 mg/dL (0.2-1.2) 04/25/19 16:01 AST 13 U/L (5-34) 04/25/19 16:01 ALT 21 U/L (8-55) 04/25/19 16:01 Alkaline Phosphatase 82 U/L (40-150) 04/25/19 16:01 C-Reactive Protein 1.50 mg/dL (= or < 0.5) H 04/25/19 16:01 Serum Total Protein 6.8 g/dL (5.8-8.1) 04/25/19 16:01 Albumin 3.9 g/dL (3.4-4.8) 04/25/19 16:01 - Radiology Interpretation US - venous Status: image reviewed by me Hospitalist H&P A/P - Problem (1) Sepsis Code(s): A41.9 - SEPSIS, UNSPECIFIED ORGANISM Status: Acute (2) Cellulitis Code(s): L03.90 - CELLULITIS, UNSPECIFIED Status: Acute (3) Depression Code(s): F32.9 - MAJOR DEPRESSIVE DISORDER, SINGLE EPISODE, UNSPECIFIED Status : Acute (4) Panic attack Code(s): F41.0 - PANIC DISORDER [EPISODIC PAROXYSMAL ANXIETY] Status: Acute (5) Cellulitis of left lower extremity Code(s): L03.116 - CELLULITIS OF LEFT LOWER LIMB Status: Acute (6) Physical deconditioning Code(s): R53.81 - OTHER MALAISE Status: Acute (7) Dyslipidemia Code(s): E78.5 - HYPERLIPIDEMIA, UNSPECIFIED Status: Chronic (8) H/O: CVA (cerebrovascular accident) Code(s): Z86.73 - PRSNL HX OF TIA (TIA), AND CEREB INFRC W/O RESID DEFICITS Status: Chronic (9) HTN (hypertension) Code(s): I10 - ESSENTIAL (PRIMARY) HYPERTENSION Status: Chronic Qualifiers: Hypertension type: essential hypertension Qualified Code(s): I10 - Essential (primary) hypertension (10) Obesity (BMI 30-39.9) Code(s): E66.9 - OBESITY, UNSPECIFIED Status: Chronic - Plan Plan: Plan: Admit to Med/ surg Broad spectrum ABX Wound care consult, eval and treat no localized abscess or drainable lesion No Hx of CHF, will get Echo to eval Breathing well on room air Add CXR and BNP IV lasix in the AM Hold nephrotoxic medications as able Fluid restriction 1.5L Elevate legs while in bed Replace electrolytes as needed GI and DVT PPX
[2019-04-25] MEDS: Famotidine 20 MG TAB PO SCH ×2 (20:55→22:34)
[2019-04-25] MEDS: Piperacillin/Tazobactam 3.375 GM in Sodium Chloride 0.9% 100 ML IVPB SCH (20:58)
[2019-04-25 23:25] VITALS: BMI 39.2
[2019-04-26 02:09] LABS: Bacteria/HPF None Seen HPF (None Seen); Bilirubin Negative (Negative); Blood, Urine Negative (Negative); Clarity Clear (Clear); Glucose, Urine (Dipstick) Normal (Negative); Leukocyte Negative Leu/uL (Negative); Nitrite Negative (Negative); Protein, Urine (Dipstick) Negative (Neg-Trace); RBC/HPF 0-3 HPF (0-3); Squamous Epithelial 0-3 HPF (0-3); Urobilinogen Normal mg/dL (Less than 2)
[2019-04-26] MEDS: Piperacillin/Tazobactam 3.375 GM in Sodium Chloride 0.9% 100 ML IVPB SCH ×4 (03:46→20:03)
[2019-04-26] MEDS: Vancomycin HCl 1 GM in Premix Bag 1 BAG IVPB SCH ×2 (04:59→16:54)
[2019-04-26 08:04] LABS: #Eosinphils 0.4 thou/uL (0.0-0.7); #Lymphocytes 1.1 thou/uL (1.20-3.40); #Monocytes 0.9 thou/uL (0.11-0.59); %Basophils 0.1 % (0.0-1.0); %Eosinophils 3.6 % (0.0-10.0); %Lymphocytes 9.8 % (21.0-51.0); %Monocytes 7.5 % (0.0-10.0); Hemoglobin 11.7 g/dL (14.0-18.0); Mean Corpuscular HGB CONC 32.5 g/dL (32.0-36.0); Mean Corpuscular Hemoglobin 31.7 pg (27.0-31.0); Mean Corpuscular Volume 97.6 fL (78.0-98.0); Platelet Count 213 thou/uL (130-400); RBC Distribution Width 14.1 % (11.5-14.5); White Blood Cell (WBC) Count 11.4 thou/uL (4.8-10.8)
[2019-04-26] MEDS: Famotidine 20 MG TAB PO SCH ×2 (08:06→20:03)
[2019-04-26] MEDS: Aspirin 81 mg Enteric Coated Tablet PO SCH (08:06)
[2019-04-26] MEDS: Furosemide 20 MG/2 ML VIAL SLOW IVP SCH (08:07)
[2019-04-26] MEDS: Lisinopril 20 MG TAB PO SCH (08:07)
[2019-04-26 08:25] LABS: Anion Gap 11 mmol/L (10-20); BUN (Urea Nitrogen) 16 mg/dL (8.4-25.7); Calc. Creatinine Clearance 107 mL/min (70-130); Calcium 9.5 mg/dL (7.8-10.44); Carbon Dioxide 29 mmol/L (23-31); Chloride 101 mmol/L (98-107); Estimated GFR-MDRD 66; Glucose 137 mg/dL (80-115); Potassium 4.3 mmol/L (3.5-5.1); Sodium 137 mmol/L (136-145)
[2019-04-26] MEDS ORDERED: Chlorthalidone 25 MG TAB PO SCH (09:00)
[2019-04-26] MEDS ORDERED: Atorvastatin Calcium 40 MG TAB PO SCH (09:00)
--- NOTE | 2019-04-26 10:59 | PDOC.HOSPP ---
- Subjective Subjective: Seen and examined. Breathing well on room air. Urinating a lot with IV lasix. Still with severe LE edema, improved since admission. Fluid restrictions and diuretics in place. Cellulitis still inflammed and not much change. - Objective Vital Signs & Weight: Vital Signs (12 hours) Temp Pulse Resp BP BP Pulse Ox 04/26/19 08:07 154/74 H 04/26/19 07:44 97.7 F 77 18 154/74 H 95 04/26/19 04:00 98.0 F 77 20 132/65 94 L 04/26/19 00:00 97.5 F L 74 20 115/66 94 L Weight Weight 242 lb 14.4 oz I&O: 04/25/19 04/26/19 04/27/19 06:59 06:59 06:59 Intake Total 240 Balance 240 Result Diagrams: 04/26/19 07:43 04/26/19 07:43 Radiology Reviewed by me: Yes (US NATALIYA) Hospitalist ROS - Review of Systems All other systems reviewed; all pertinent +/- noted in HPI/Subj - Medication Medications: Active Medications Generic Name Dose Route Start Last Admin Trade Name Freq PRN Reason Stop Dose Admin Aspirin 81 mg 04/26/19 09:00 04/26/19 08:06 Ecotrin PO 81 mg DAILY EMEKA Administration Famotidine 20 mg 04/25/19 21:00 04/26/19 08:06 Pepcid PO 20 mg BID EMEKA Administration Furosemide 20 mg 04/26/19 09:00 04/26/19 08:07 Lasix SLOW IVP 20 mg DAILY EMEKA Administration Piperacillin Sod/Tazobactam 100 mls @ 200 mls/hr 04/25/19 21:00 04/26/19 08: 05 Sod 3.375 gm/ Sodium Chloride IVPB 100 mls 0300,0900,1500,2100 EMEKA Administration Vancomycin HCl 1 gm/ Device 200 mls @ 200 mls/hr 04/26/19 04:00 04/26/19 04: 59 IVPB 200 mls 0400,1600 EMEKA Administration Lisinopril 20 mg 04/26/19 09:00 04/26/19 08:07 Zestril PO 20 mg DAILY EMEKA Administration Sertraline HCl 50 mg 04/26/19 09:00 04/26/19 08:09 Zoloft PO Not Given DAILY EMEKA Sodium Chloride 10 ml 04/25/19 21:00 04/26/19 08:08 Flush - Normal Saline IVF 10 ml Q12HR EMEKA Administration - Exam General Appearance: NAD Eye: PERRL ENT: no oropharyngeal lesions, moist mucosa Neck: supple, no lymphadenopathy Heart: no murmur (No murmur appreciated), no gallops, no rubs, normal peripheral pulses Heart - other findings: S1 and S2 present Respiratory: no wheezes, no rales, no ronchi Respiratory - other findings: Decreased breath sounds secondary to body habitus Gastrointestinal: soft, non-tender, non-distended, no guarding, no rigidity Extremeties - other findings: +4 LE edema bilaterally Skin - other findings: LE cellulitis unchanged from admission. No drainable abscess or open weepin Neurological: CN's grossly intact, normal sensation to touch, no focal deficits Musculoskeletal: generalized weakness Psychiatric: normal affect, A&O x 3 Hosp A/P (1) Sepsis Code(s): A41.9 - SEPSIS, UNSPECIFIED ORGANISM Status: Acute (2) Cellulitis Code(s): L03.90 - CELLULITIS, UNSPECIFIED Status: Acute (3) Depression Code(s): F32.9 - MAJOR DEPRESSIVE DISORDER, SINGLE EPISODE, UNSPECIFIED Status : Acute (4) Panic attack Code(s): F41.0 - PANIC DISORDER [EPISODIC PAROXYSMAL ANXIETY] Status: Acute (5) Cellulitis of left lower extremity Code(s): L03.116 - CELLULITIS OF LEFT LOWER LIMB Status: Acute (6) Physical deconditioning Code(s): R53.81 - OTHER MALAISE Status: Acute (7) Dyslipidemia Code(s): E78.5 - HYPERLIPIDEMIA, UNSPECIFIED Status: Chronic (8) H/O: CVA (cerebrovascular accident) Code(s): Z86.73 - PRSNL HX OF TIA (TIA), AND CEREB INFRC W/O RESID DEFICITS Status: Chronic (9) HTN (hypertension) Code(s): I10 - ESSENTIAL (PRIMARY) HYPERTENSION Status: Chronic Qualifiers: Hypertension type: essential hypertension Qualified Code(s): I10 - Essential (primary) hypertension (10) Obesity (BMI 30-39.9) Code(s): E66.9 - OBESITY, UNSPECIFIED Status: Chronic - Plan Plan: Med/ surg Continue Broad spectrum ABX Blood Cx Wound Cx Will de escalate to culture and sensitivity as able Failed oral Doxycycline prior to admission, was not taking Q8 hours as directed - may require IV medications in inpatient setting as he has demonstrated medical non compliance Consider ID consult if does not respond to broad spectrum coverage Wound care eval and treat CXR pending Echo pending BNP pending IV lasix QAM for volume overload Hold nephrotoxic mediations as able Fluid restriction 1.5L/ day Elevate legs while in bed Replace electrolytes as needed GI and DVT PPX
--- NOTE | 2019-04-26 11:43 | RAD ---
EXAM: Portable chest PROVIDED CLINICAL HISTORY: Cough COMPARISON: None FINDINGS: Cardiac silhouette appears enlarged, which may be least partially on the basis of portable technique. No focal consolidation, pleural fluid or pneumothorax evident. IMPRESSION: No evidence for an acute cardiopulmonary process.
[2019-04-26 16:48] LABS: Vancomycin, Trough 15.3 ug/mL
[2019-04-27] MEDS: Piperacillin/Tazobactam 3.375 GM in Sodium Chloride 0.9% 100 ML IVPB SCH ×4 (03:42→20:01)
[2019-04-27] MEDS: Vancomycin HCl 1 GM in Premix Bag 1 BAG IVPB SCH (04:48)
[2019-04-27 06:55] LABS: #Eosinphils 0.4 thou/uL (0.0-0.7); #Monocytes 0.8 thou/uL (0.11-0.59); #Neutrophils 7.2 thou/uL (1.40-6.50); %Eosinophils 4.6 % (0.0-10.0); %Lymphocytes 10.5 % (21.0-51.0); %Monocytes 8.5 % (0.0-10.0); %Neutrophils 76.4 % (42.0-75.0); Hemoglobin 12.3 g/dL (14.0-18.0); Mean Corpuscular HGB CONC 34.4 g/dL (32.0-36.0); Mean Corpuscular Hemoglobin 33.2 pg (27.0-31.0); Mean Corpuscular Volume 96.5 fL (78.0-98.0); Mean Platelet Volume 8.5 fL (7.4-10.4); Platelet Count 200 thou/uL (130-400); RBC Distribution Width 14.1 % (11.5-14.5); Red Blood Cell (RBC) Count 3.71 mill/uL (4.70-6.10); White Blood Cell (WBC) Count 9.5 thou/uL (4.8-10.8)
[2019-04-27 07:15] LABS: Anion Gap 14 mmol/L (10-20); BUN (Urea Nitrogen) 19 mg/dL (8.4-25.7); Calc. Creatinine Clearance 85 mL/min (70-130); Calcium 9.2 mg/dL (7.8-10.44); Carbon Dioxide 24 mmol/L (23-31); Chloride 100 mmol/L (98-107); Estimated GFR-MDRD 51; Glucose 140 mg/dL (80-115); Potassium 4.1 mmol/L (3.5-5.1); Sodium 134 mmol/L (136-145)
[2019-04-27] MEDS: Famotidine 20 MG TAB PO SCH ×2 (07:54→20:01)
[2019-04-27] MEDS: Aspirin 81 mg Enteric Coated Tablet PO SCH (07:54)
[2019-04-27] MEDS: Lisinopril 20 MG TAB PO SCH (07:54)
[2019-04-27] MEDS: Furosemide 20 MG/2 ML VIAL SLOW IVP SCH (07:55)
[2019-04-27] MEDS: diphenhydrAMINE 25 MG CAP PO PRN (10:03)
--- NOTE | 2019-04-27 11:02 | PDOC.HOSPP ---
- Subjective Subjective: Seen and examined. Clinically improving. Less lower extremity edema. Less lower extremity redness/ cellulitis. Patient working with PT/OT. No acute complaints. - Objective Vital Signs & Weight: Vital Signs (12 hours) Temp Pulse Resp BP BP Pulse Ox 04/27/19 08:04 95 04/27/19 07:54 123/55 L 04/27/19 07:38 98.3 F 76 16 123/55 L 95 04/27/19 03:39 97.9 F 80 16 112/66 93 L Weight Weight 242 lb 14.4 oz I&O: 04/26/19 04/27/19 04/28/19 06:59 06:59 06:59 Intake Total 1320 Output Total 2185 Balance -865 Result Diagrams: 04/27/19 06:35 04/27/19 06:35 Radiology Reviewed by me: Yes (Echocardiogram) Hospitalist ROS - Review of Systems All other systems reviewed; all pertinent +/- noted in HPI/Subj - Medication Medications: Active Medications Generic Name Dose Route Start Last Admin Trade Name Freq PRN Reason Stop Dose Admin Aspirin 81 mg 04/26/19 09:00 04/27/19 07:54 Ecotrin PO 81 mg DAILY EMEKA Administration Diphenhydramine HCl 25 mg 04/25/19 18:21 04/27/19 10:03 Benadryl PO 25 mg Q6H PRN Administration Itching & Insomnia Famotidine 20 mg 04/25/19 21:00 04/27/19 07:54 Pepcid PO 20 mg BID EMEKA Administration Piperacillin Sod/Tazobactam 100 mls @ 200 mls/hr 04/25/19 21:00 04/27/19 07: 55 Sod 3.375 gm/ Sodium Chloride IVPB 100 mls 0300,0900,1500,2100 EMEKA Administration Lisinopril 20 mg 04/26/19 09:00 04/27/19 07:54 Zestril PO 20 mg DAILY EMEKA Administration Sodium Chloride 10 ml 04/25/19 21:00 04/27/19 07:56 Flush - Normal Saline IVF 10 ml Q12HR EMEKA Administration - Exam General Appearance: NAD, awake alert Eye: anicteric sclera Eye - other findings: EOMI ENT: no oropharyngeal lesions, moist mucosa Neck: supple, symmetric, no lymphadenopathy Heart: no murmur, no gallops, no rubs Heart - other findings: S1 and S2 present Respiratory: no wheezes, no rales, no ronchi, normal chest expansion Gastrointestinal: soft, non-tender, non-distended, no palpable masses Gastrointestinal - other findings: Obese Extremeties - other findings: +4 LE bilaterally. Improving with now wrinkling in the skin Skin - other findings: LE cellulitis improving significantly since admssion, see wound care Neurological: CN's grossly intact, normal sensation to touch, no focal deficits Musculoskeletal: generalized weakness Psychiatric: normal affect, A&O x 3 Hosp A/P (1) VINCENZO (acute kidney injury) Code(s): N17.9 - ACUTE KIDNEY FAILURE, UNSPECIFIED Status: Acute (2) Sepsis Code(s): A41.9 - SEPSIS, UNSPECIFIED ORGANISM Status: Acute (3) Cellulitis Code(s): L03.90 - CELLULITIS, UNSPECIFIED Status: Acute (4) Depression Code(s): F32.9 - MAJOR DEPRESSIVE DISORDER, SINGLE EPISODE, UNSPECIFIED Status : Acute (5) Panic attack Code(s): F41.0 - PANIC DISORDER [EPISODIC PAROXYSMAL ANXIETY] Status: Acute (6) Cellulitis of left lower extremity Code(s): L03.116 - CELLULITIS OF LEFT LOWER LIMB Status: Acute (7) Physical deconditioning Code(s): R53.81 - OTHER MALAISE Status: Acute (8) Dyslipidemia Code(s): E78.5 - HYPERLIPIDEMIA, UNSPECIFIED Status: Chronic (9) H/O: CVA (cerebrovascular accident) Code(s): Z86.73 - PRSNL HX OF TIA (TIA), AND CEREB INFRC W/O RESID DEFICITS Status: Chronic (10) HTN (hypertension) Code(s): I10 - ESSENTIAL (PRIMARY) HYPERTENSION Status: Chronic Qualifiers: Hypertension type: essential hypertension Qualified Code(s): I10 - Essential (primary) hypertension (11) Obesity (BMI 30-39.9) Code(s): E66.9 - OBESITY, UNSPECIFIED Status: Chronic - Plan Plan: Med/ surg Continue Broad spectrum ABX Blood Cx - no growth to date Wound Cx Will de escalate to culture and sensitivity as able, negative blood cultures - will D/c Vancomycin. Neg MRSA screen Failed oral Doxycycline prior to admission, was not taking Q8 hours as directed - may require IV medications in inpatient setting as he has demonstrated medical non compliance Responding to current ABX Wound care eval and treat CXR noted Echo preserved EF, no mention of diastolic dysfunction IV lasix QAM for volume overload, will D/c with VINCENZO Hold nephrotoxic mediations as able Fluid restriction 1.5L/ day Elevate legs while in bed Replace electrolytes as needed GI and DVT PPX
[2019-04-28] MEDS: diphenhydrAMINE 25 MG CAP PO PRN (01:05)
[2019-04-28] MEDS: Piperacillin/Tazobactam 3.375 GM in Sodium Chloride 0.9% 100 ML IVPB SCH ×2 (02:34→08:45)
[2019-04-28 06:08] LABS: #Eosinphils 0.5 thou/uL (0.0-0.7); #Lymphocytes 1.4 thou/uL (1.20-3.40); #Neutrophils 6.4 thou/uL (1.40-6.50); %Basophils 0.3 % (0.0-1.0); %Eosinophils 5.7 % (0.0-10.0); %Lymphocytes 14.5 % (21.0-51.0); %Monocytes 10.2 % (0.0-10.0); %Neutrophils 69.2 % (42.0-75.0); Hemoglobin 11.8 g/dL (14.0-18.0); Mean Corpuscular HGB CONC 32.5 g/dL (32.0-36.0); Mean Corpuscular Volume 98.6 fL (78.0-98.0); Mean Platelet Volume 8.5 fL (7.4-10.4); Platelet Count 207 thou/uL (130-400); RBC Distribution Width 14.1 % (11.5-14.5); White Blood Cell (WBC) Count 9.3 thou/uL (4.8-10.8)
[2019-04-28 06:23] LABS: Anion Gap 14 mmol/L (10-20); BUN (Urea Nitrogen) 26 mg/dL (8.4-25.7); Calc. Creatinine Clearance 78 mL/min (70-130); Calcium 9.4 mg/dL (7.8-10.44); Carbon Dioxide 26 mmol/L (23-31); Chloride 102 mmol/L (98-107); Estimated GFR-MDRD 46; Glucose 117 mg/dL (80-115); Sodium 138 mmol/L (136-145)
[2019-04-28] MEDS: Lisinopril 20 MG TAB PO SCH (08:44)
[2019-04-28] MEDS: Aspirin 81 mg Enteric Coated Tablet PO SCH (08:44)
[2019-04-28] MEDS: Famotidine 20 MG TAB PO SCH ×2 (08:44→20:24)
--- NOTE | 2019-04-28 14:59 | PDOC.HOSPP ---
- Subjective Subjective: Seen and examined. Feeling better. Less cellulitis LE. Less swelling LE. Uptrending renal function. Negative cultures to date. The problem for this patient now is that he needs coverage for community acquired MRSA, this commonly will be treated with Doxycycline which he did not respond to in the outpatient setting - partially because he could not remember to take it Q8 hours. His other option would be Clindamycin which is also dosed Q8 or Bactrim which is BID - though higher risk for renal toxicity. Will renally dose Bactrim in the hospital and monitor renal function to see if worsens. I have lightened his fluid restrictions to 1800cc/ day and stopped IV lasix. - Objective Vital Signs & Weight: Vital Signs (12 hours) Temp Pulse Resp BP Pulse Ox 04/28/19 11:33 97.7 F 76 20 134/72 94 L 04/28/19 07:38 98.6 F 71 22 H 109/61 95 Weight Admit Weight 242 lb 14.4 oz Weight 242 lb 14.4 oz I&O: 04/27/19 04/28/19 04/29/19 06:59 06:59 06:59 Intake Total 1320 1920 Output Total 2185 300 Balance -865 1620 Result Diagrams: 04/28/19 05:51 04/28/19 05:51 Hospitalist ROS - Review of Systems All other systems reviewed; all pertinent +/- noted in HPI/Subj - Medication Medications: Active Medications Generic Name Dose Route Start Last Admin Trade Name Freq PRN Reason Stop Dose Admin Aspirin 81 mg 04/26/19 09:00 04/28/19 08:44 Ecotrin PO 81 mg DAILY EMEKA Administration Diphenhydramine HCl 25 mg 04/25/19 18:21 04/28/19 01:05 Benadryl PO 25 mg Q6H PRN Administration Itching & Insomnia Famotidine 20 mg 04/25/19 21:00 04/28/19 08:44 Pepcid PO 20 mg BID EMEKA Administration Lisinopril 20 mg 04/26/19 09:00 04/28/19 08:44 Zestril PO 20 mg DAILY EMEKA Administration Sodium Chloride 10 ml 04/25/19 21:00 04/28/19 08:44 Flush - Normal Saline IVF 10 ml Q12HR EMKEA Administration - Exam General Appearance: NAD Eye: PERRL, anicteric sclera ENT: no oropharyngeal lesions, moist mucosa Neck: supple, symmetric, no lymphadenopathy Heart: no murmur, no gallops, no rubs Respiratory: no wheezes, no rales, no ronchi Gastrointestinal: soft, non-tender, no palpable masses, no guarding, no rigidity Extremeties - other findings: +3 LE edema is improving dramatically since admission Skin - other findings: LE cellulitis is significantly improved Neurological: CN's grossly intact, normal sensation to touch, no focal deficits Musculoskeletal: generalized weakness Psychiatric: normal affect, A&O x 3 Hosp A/P (1) VINCENZO (acute kidney injury) Code(s): N17.9 - ACUTE KIDNEY FAILURE, UNSPECIFIED Status: Acute (2) Sepsis Code(s): A41.9 - SEPSIS, UNSPECIFIED ORGANISM Status: Acute (3) Cellulitis Code(s): L03.90 - CELLULITIS, UNSPECIFIED Status: Acute (4) Depression Code(s): F32.9 - MAJOR DEPRESSIVE DISORDER, SINGLE EPISODE, UNSPECIFIED Status : Acute (5) Panic attack Code(s): F41.0 - PANIC DISORDER [EPISODIC PAROXYSMAL ANXIETY] Status: Acute (6) Cellulitis of left lower extremity Code(s): L03.116 - CELLULITIS OF LEFT LOWER LIMB Status: Acute (7) Physical deconditioning Code(s): R53.81 - OTHER MALAISE Status: Acute (8) Dyslipidemia Code(s): E78.5 - HYPERLIPIDEMIA, UNSPECIFIED Status: Chronic (9) H/O: CVA (cerebrovascular accident) Code(s): Z86.73 - PRSNL HX OF TIA (TIA), AND CEREB INFRC W/O RESID DEFICITS Status: Chronic (10) HTN (hypertension) Code(s): I10 - ESSENTIAL (PRIMARY) HYPERTENSION Status: Chronic Qualifiers: Hypertension type: essential hypertension Qualified Code(s): I10 - Essential (primary) hypertension (11) Obesity (BMI 30-39.9) Code(s): E66.9 - OBESITY, UNSPECIFIED Status: Chronic - Plan Plan: Med/ surg Transition to oral Bactrim, renally dose If renal function does not continue to worsen will plan for D/c in the next 24- 48 hours Will need to resume home health Need community acquired MRSA coverage with either: Doxycycline, Bactrim, or Clindamycin Failed oral Doxycycline prior to admission, was not taking Q8 hours as directed Cannot take Clindamycin which is Q8 or Q6 dosing Blood Cx - no growth to date Wound Cx Will de escalate to culture and sensitivity as able, negative blood cultures - will D/c Vancomycin. Neg MRSA screen Responding to current ABX Wound care eval and treat CXR noted Echo preserved EF, no mention of diastolic dysfunction IV lasix QAM for volume overload, will D/c with VINCENZO Hold nephrotoxic mediations as able Fluid restriction 1.8L/ day Elevate legs while in bed Replace electrolytes as needed GI and DVT PPX
[2019-04-28] MEDS: Sulfameth/Trimethoprim DS 800-160mg TAB PO SCH (20:24)
[2019-04-29 05:49] LABS: #Eosinphils 0.5 thou/uL (0.0-0.7); #Lymphocytes 1.3 thou/uL (1.20-3.40); #Monocytes 0.9 thou/uL (0.11-0.59); #Neutrophils 6.4 thou/uL (1.40-6.50); %Basophils 0.2 % (0.0-1.0); %Eosinophils 5.8 % (0.0-10.0); %Lymphocytes 13.9 % (21.0-51.0); %Monocytes 10.1 % (0.0-10.0); Hemoglobin 11.8 g/dL (14.0-18.0); Mean Corpuscular HGB CONC 33.3 g/dL (32.0-36.0); Mean Corpuscular Hemoglobin 32.2 pg (27.0-31.0); Mean Corpuscular Volume 96.6 fL (78.0-98.0); Mean Platelet Volume 8.7 fL (7.4-10.4); Platelet Count 206 thou/uL (130-400); RBC Distribution Width 14.2 % (11.5-14.5); Red Blood Cell (RBC) Count 3.68 mill/uL (4.70-6.10); White Blood Cell (WBC) Count 9.1 thou/uL (4.8-10.8)
[2019-04-29 06:15] LABS: Anion Gap 9 mmol/L (10-20); BUN (Urea Nitrogen) 25 mg/dL (8.4-25.7); Calc. Creatinine Clearance 99 mL/min (70-130); Calcium 9.1 mg/dL (7.8-10.44); Carbon Dioxide 29 mmol/L (23-31); Chloride 102 mmol/L (98-107); Estimated GFR-MDRD 61; Glucose 101 mg/dL (80-115); Potassium 3.9 mmol/L (3.5-5.1); Sodium 136 mmol/L (136-145)
[2019-04-29] MEDS: Famotidine 20 MG TAB PO SCH (08:05)
[2019-04-29] MEDS: Sulfameth/Trimethoprim DS 800-160mg TAB PO SCH (08:05)
[2019-04-29] MEDS: Aspirin 81 mg Enteric Coated Tablet PO SCH (08:05)
[2019-04-29] MEDS: Lisinopril 20 MG TAB PO SCH (08:05)
[2019-04-29] MEDS: diphenhydrAMINE 25 MG CAP PO PRN (11:59)
[2019-04-29 12:04] VITALS: BP 124/59; TEMP 98.1
--- NOTE | 2019-04-30 02:57 | DIS ---
DATE OF ADMISSION: 04/25/2019 DATE OF DISCHARGE: 04/29/2019 REASON FOR HOSPITALIZATION: Worsening leg swelling, redness, and pain. SIGNIFICANT FINDINGS: The patient was found to be septic with lower extremity cellulitis. PROCEDURES PERFORMED/TREATMENTS RENDERED: The patient was admitted to medical unit for close management. The patient had IV antibiotics with good improvement of symptoms. CONDITION ON DISCHARGE: Stable. SPECIFIC INSTRUCTIONS FOR THE PATIENT/FAMILY: 1. The patient is recommended to take all medications as directed. 2. The patient is recommended to complete a full course of oral antibiotics for resolution of cellulitis. 3. The patient is recommended to restrict fluid intake to avoid further episodes of lower extremity swelling and worsening of cellulitis. 4. The patient is recommended to follow up with primary care physician in the next 5 to 7 days. 5. The patient is recommended to return to acute care hospital immediately if signs or symptoms return, worsen, or any other new symptoms occur. DISCHARGE MEDICATIONS: Please see full medication list for details. 1. Sertraline 50 mg one tablet p.o. daily. 2. Famotidine 10 mg one tablet p.o. daily. 3. Chlorthalidone 25 mg one tablet p.o. daily. 4. Atorvastatin 40 mg one tablet p.o. daily. 5. Xanax 0.5 mg one tablet p.o. q.8 hours p.r.n. anxiety. 6. Lisinopril 30 mg one tablet p.o. daily. 7. Aspirin 81 mg one tablet p.o. every other day. 8. New medication-Bactrim DS one tablet p.o. b.i.d. for an additional of 5 days, #10 tabs. HOSPITAL COURSE: Mr. Strickland is a very pleasant 63-year-old white gentleman with past medical history of chronic lower extremity swelling, hypertension, anxiety/panic attacks, who presents to [facility] on 04/25/2019, with lower extremity edema. The patient was found to have lower extremity cellulitis, sepsis on admission. The patient initially with WBC count 14,000, was placed on broad-spectrum antibiotics with good improvement of symptoms. The patient's blood cultures remaining negative. He was deescalated on antibiotics. The patient has lower extremity swelling, was placed on fluid restrictions and had small dose of IV Lasix with good improvement of swelling. The patient did develop acute kidney injury and IV Lasix was discontinued. The patient's fluid restriction was lightened to 1800 mL fluid restriction per day. The patient did have lower extremity ultrasound, please see full report for details, no DVT was present. The patient had echocardiogram, please see full echocardiogram report for details. The patient having a preserved ejection fraction of 55% without significant valvular pathology. With the resolution of patient's sepsis, decision was made to transition the patient to oral antibiotics for continuation of cellulitis treatment. The patient was previously on doxycycline prior to admission and has demonstrated treatment failure on oral doxycycline. The patient was not taking doxycycline every 8 hours as it was prescribed and this is partial reason for treatment failure. With consideration for coverage for MRSA community-acquired organisms, the patient could either be placed on doxycycline which he has demonstrated failure, clindamycin which is q.6 or q.8 hour dosing which the patient cannot remember to take, the last choice was for Bactrim. The patient was started on Bactrim in the acute care hospital and his renal function was trended. The patient's renal function stayed normal on Bactrim therapy and the patient was recommended safe for discharge on oral Bactrim. The patient recommended not to strictly restrict his water intake over the next several days. The patient recommended to complete a full course of oral antibiotics for resolution of symptoms. The patient recommended to follow up with primary care physician in the next 5 to 7 days. The patient recommended to return to acute care hospital immediately for worsening symptoms or if any new symptoms occur. Greater than 37 minutes spent coordinating care and discharge process for this patient. Job ID: [id number]
== END 2019-04-29 13:19 | disposition home health service (06) | DRG 872 ==
LOC: ERS 15:29 → T4-B 18:21
PROVIDERS: ADMIT Internal Medicine; ATTEND Internal Medicine
DX: A41.9 Sepsis, unspecified organism (principal); N17.9 Acute kidney failure, unspecified; L03.116 Cellulitis of left lower limb; I10 Essential (primary) hypertension; E78.5 Hyperlipidemia, unspecified; F41.0 Panic disorder [episodic paroxysmal anxiety]; E66.9 Obesity, unspecified; F32.9 Major depressive disorder, single episode, unspecified; Z87.891 Personal history of nicotine dependence; Z86.73 Personal history of transient ischemic attack (TIA), and cerebral infarction without residual deficits; Z68.39 Body mass index [BMI] 39.0-39.9, adult
CPT/HCPCS: 36415; 71045; 80048; 80053; 80202; 81001; 83880; 85025; 86140; 87040; 93306; 96365; J1940; J2543; J3370; J3490; Q0163